=== PATIENT | male | born 1975 | race African-American/Black ===

== ENCOUNTER 2019-03-25 14:29 | Emergency (ER) | payer OTHER ==
[2019-03-25 14:43] VITALS: BP 127/71; PULSE 74; TEMP 98.9; BMI 31.3
--- NOTE | 2019-03-25 15:01 | PDOC ---
History of Present Illness - General Chief Complaint: Injury Stated Complaint: LT THUMB INJURY Time Seen by Provider: 03/25/19 14:38 History Source: Patient Exam Limitations: Clinical Condition - History of Present Illness Initial Comments: 03/25/19 14:56 Patient with no significant past medical history present with complaint of laceration to the tip of left thumb with a metal piece at work. Patient reported last tetanus vaccine last year. Denies numbness or tingling sensation. Denies any other symptoms Timing/Duration: reports: just prior to arrival Past History - Past Medical History Allergies/Adverse Reactions: Allergies Allergy/AdvReac Type Severity Reaction Status Date / Time No Known Allergies Allergy Verified 03/25/19 14:34 Home Medications: Ambulatory Orders Cephalexin Monohydrate [Keflex -] 500 mg PO BID 7 Days #14 capsule 03/25/19 Ibuprofen 800 mg PO Q8H PRN #20 tablet 03/25/19 COPD: No - Immunization History Immunization Up to Date: Yes - Suicide/Smoking/Psychosocial Hx Smoking History: Never smoked Review of Systems - Review of Systems Able to Perform ROS?: Yes Is the patient limited [place] proficient: No Constitutional: No: Weakness HEENTM: No: Symptoms Reported Respiratory: No: Symptoms reported Cardiac (ROS): No: Symptoms Reported ABD/GI: No: Symptoms Reported Musculoskeletal: Yes: Symptoms Reported, Muscle Pain (tip of left thumb) Integumentary: Yes: Symptoms Reported, See HPI, Other (laceration to tip of left thumb) Neurological: No: Symptoms reported, Numbness, Paresthesia, Tingling All Other Systems: Reviewed and Negative *Physical Exam - Vital Signs Last Vital Signs Temp Pulse Resp BP Pulse Ox 98.9 F 74 18 127/71 99 03/25/19 14:31 03/25/19 14:31 03/25/19 14:31 03/25/19 14:31 03/25/19 14:31 - Physical Exam Comments: 03/25/19 14:58 GENERAL: Well developed, well nourished. Awake and alert. No acute distress. PULMONARY: No evidence of respiratory distress. MUSCULOSKELETAL : mild tenderness to distal phalange of left thumb over area of laceration. Free range of motion of thumb. No bony deformities SKIN: Warm and dry. Normal capillary refill. 3 cm superficial laceration with a flap to tip of left thumb with minimal bleeding NEUROLOGICAL: Alert, awake, appropriate. No motor deficits in the lower extremities. Gait is normal without ataxia. PSYCHIATRIC: Cooperative. Good eye contact. Appropriate mood and affect. General Appearance: Yes: Nourished, Appropriately Dressed. No: Apparent Distress Procedures - Laceration/Wound Repair Left Anterior Distal Plantar Finger 1st digit Wound Length: 2.6 to 5.0 cm (3cm) Wound Explored: clean, no foreign body present Wound's Depth, Shape: superficial, linear, flap Irrigated w/ Saline: Yes Betadine Prep: Yes Anesthesia: 1% Lidocaine Amount of Anesthetic (ccs): 2 Wound Repaired With: Sutures Suture Size/Type: 4:0, nylon Number of Sutures: 5 Layer Closure: No Sterile Dressing Applied: Yes Splint Applied: No Sling Applied: No Progress: 03/25/19 15:15 Wound cleaned with Betadine and infiltrated with 2 mL 1% lidocaine. Wound closed with 5 interrupted 4-0 nylon sutures. Bacitracin apply to wound. Patient tolerated procedure well. Medical Decision Making - Medical Decision Making 03/25/19 14:56 Patient with no significant past medical history present with complaint of laceration to the tip of left thumb with a metal piece at work. Patient reported last tetanus vaccine last year. Denies numbness or tingling sensation. Denies any other symptoms Exam significant for 3 cm superficial laceration semilunar fashion with a flap to tip of left thumb with minimal bleeding.. Range of motion of thumb. Wound cleaned with Betadine and infiltrated with 2 mL 1% lidocaine. Wound closed with 5 interrupted 4-0 nylon sutures. Bacitracin apply to wound. Patient tolerated procedure well. Patient is stable for discharge on Keflex antibiotics for infection prophylaxis and Motrin when necessary for pain with advised to follow-up in one week for suture removal. Patient educated on home wound care and stable for discharge *DC/Admit/Observation/Transfer Diagnosis at time of Disposition: Laceration of thumb Qualifiers: Encounter type: initial encounter Damage to nail status: without damage Foreign body presence: without foreign body Laterality: left Qualified Code(s): S61.012A - Laceration without foreign body of left thumb without damage to nail , initial encounter - Discharge Dispostion Disposition: HOME Condition at time of disposition: Stable Decision to Admit order: No - Prescriptions Prescriptions: Cephalexin Monohydrate [Keflex -] 500 mg PO BID 7 Days #14 capsule Ibuprofen 800 mg PO Q8H PRN #20 tablet PRN Reason: pain - Referrals Referrals: Dario Aiken [Primary Care Provider] - - Patient Instructions Printed Discharge Instructions: DI for Laceration Repair -- Simple Additional Instructions: Keep wound clean and dry for the next 24 hours. Apply bacitracin to wound twice a day. Take prescribed medications as prescribed. Follow-up in one week for suture removal - Post Discharge Activity
== END 2019-03-25 15:15 | disposition home or self-care (01) ==
LOC: JERFT 14:29
PROC: 0HQGXZZ Repair Left Hand Skin, External Approach (ICD-10-PCS; principal; 2019-03-25)
DX: S61.012A Laceration without foreign body of left thumb without damage to nail, initial encounter (principal); W26.8XXA Contact with other sharp object(s), not elsewhere classified, initial encounter; Y93.89 Activity, other specified; Y92.89 Other specified places as the place of occurrence of the external cause; Y99.0 Civilian activity done for income or pay
CPT/HCPCS: 99281-25

== ENCOUNTER 2019-04-01 15:05 | Emergency (ER) | payer OTHER ==
[2019-04-01 15:12] VITALS: BP 138/78; PULSE 78; TEMP 98.3; BMI 28.1
--- NOTE | 2019-04-01 15:18 | PDOC ---
History of Present Illness - General Chief Complaint: Suture/Staple Removal(Here) Stated Complaint: SUTURE REMOVAL Time Seen by Provider: 04/01/19 15:12 - History of Present Illness Initial Comments: 04/01/19 15:17 43-year-old male presents for suture removal from the left thumb sutures placed 10 days ago. No sequelae since suture placement. Past History - Past Medical History Allergies/Adverse Reactions: Allergies Allergy/AdvReac Type Severity Reaction Status Date / Time No Known Allergies Allergy Verified 04/01/19 15:09 Home Medications: Ambulatory Orders Cephalexin Monohydrate [Keflex -] 500 mg PO BID 7 Days #14 capsule 03/25/19 Ibuprofen 800 mg PO Q8H PRN #20 tablet 03/25/19 COPD: No - Immunization History Immunization Up to Date: Yes - Suicide/Smoking/Psychosocial Hx Smoking History: Never smoked Information on smoking cessation initiated: No Hx Alcohol Use: No Drug/Substance Use Hx: No Review of Systems - Review of Systems Constitutional: Yes: See HPI *Physical Exam - Vital Signs Last Vital Signs Temp Pulse Resp BP Pulse Ox 98.3 F 78 18 138/78 99 04/01/19 15:09 04/01/19 15:09 04/01/19 15:09 04/01/19 15:09 04/01/19 15:09 - Physical Exam Comments: 04/01/19 15:17 5 Prolene sutures are in place skin color and temperature are normal at the tip of the left thumb. No indication of infection. Neurovascularly intact. Medical Decision Making - Medical Decision Making 04/01/19 15:17 Sutures were removed with an 11 blade without complication *DC/Admit/Observation/Transfer Diagnosis at time of Disposition: Visit for suture removal - Discharge Dispostion Disposition: HOME Condition at time of disposition: Stable Decision to Admit order: No - Referrals Referrals: Josh Monroe [Primary Care Provider] - - Patient Instructions Printed Discharge Instructions: DI for Suture Removal Additional Instructions: Please leave the Steri-Strips on. He may wash the wound with soap and water and leave it open to air. If you're working he can cover with Band-Aid or dry sterile dressing. Return to the emergency room should you have any further issues such as redness pain drainage or swelling from the area Tylenol and Motrin as directed for pain. - Post Discharge Activity
== END 2019-04-01 15:18 | disposition home or self-care (01) ==
LOC: JERFT 15:05
DX: Z48.02 Encounter for removal of sutures (principal)
CPT/HCPCS: 99281-25

== ENCOUNTER 2019-06-06 08:17 | Emergency (ER) | payer OTHER ==
[2019-06-06 08:21] VITALS: BP 119/71; PULSE 80; TEMP 98.5; BMI 31.3
--- NOTE | 2019-06-06 09:01 | PDOC ---
History of Present Illness - General Chief Complaint: Cold Symptoms Stated Complaint: COLD Time Seen by Provider: 06/06/19 08:47 History Source: Patient Exam Limitations: No Limitations Past History - Past Medical History Allergies/Adverse Reactions: Allergies Allergy/AdvReac Type Severity Reaction Status Date / Time Pork/Porcine Containing Allergy Verified 06/06/19 08:24 Products Home Medications: Ambulatory Orders Cephalexin Monohydrate [Keflex -] 500 mg PO BID 7 Days #14 capsule 03/25/19 Ibuprofen 800 mg PO Q8H PRN #20 tablet 03/25/19 COPD: No - Immunization History Immunization Up to Date: Yes - Psycho Social/Smoking Cessation Hx Smoking History: Never smoked Information on smoking cessation initiated: No Hx Alcohol Use: No Drug/Substance Use Hx: No *Physical Exam - Vital Signs Last Vital Signs Temp Pulse Resp BP Pulse Ox 98.5 F 80 18 119/71 97 06/06/19 08:19 06/06/19 08:19 06/06/19 08:19 06/06/19 08:19 06/06/19 08:19 - Physical Exam General Appearance: No: Apparent Distress HEENT: positive: Normal Voice. negative: Muffled/Hoarse voice, Pharyngeal Erythema, Tonsillar Exudate, Tonsillar Erythema, Nasal Congestion, Rhinorrhea Respiratory/Chest: positive: Lungs Clear, Normal Breath Sounds. negative: Respiratory Distress Cardiovascular: positive: Regular Rhythm, Regular Rate, S1, S2. negative: Murmur Gastrointestinal/Abdominal: positive: Normal Bowel Sounds, Soft. negative: Tender, Distended, Guarding, Rebound Neurologic: positive: Alert, Normal Mood/Affect Medical Decision Making - Medical Decision Making 44 y/o M with no sig pmh presents with cough x 2 days along with post-tussive emesis, congestion and sore throat. Denies fever, sob, cp, abd pain, diarrhea, recent travel. No antipyretics were taken today Likely viral URI patient afebrile, lungs clear stable for dc 06/06/19 08:59 Discharge - Discharge Information Problems reviewed: Yes Clinical Impression/Diagnosis: Viral URI Condition: Stable Disposition: HOME - Admission No - Additional Discharge Information Prescription Drug Monitoring Program (I-STOP) results: I-STOP not reviewed - Follow up/Referral Referrals: Josh Monroe [Primary Care Provider] - 2 Days - Patient Discharge Instructions Patient Printed Discharge Instructions: DI for Viral Upper Respiratory Infection -- Adult Additional Instructions: Thank you for choosing [facility]. It was a pleasure taking care of you. Likely you have viral infection Take Mucinex or Robitussin as needed for cough Salt water gargles may also help Recommend hydrated (at least 2-3L) daily Follow-up with your doctor in 1 week. Return to the Emergency Department if your symptoms worsen or persist or have other concerning symptoms. - Post Discharge Activity Work/Back to School Note: Back to Work
== END 2019-06-06 09:35 | disposition home or self-care (01) ==
LOC: JERFT 08:17
DX: Z91.018 Allergy to other foods (principal)
CPT/HCPCS: 99281-25

== ENCOUNTER 2019-08-12 15:00 | Emergency (ER) | payer OTHER ==
[2019-08-12 15:11] VITALS: BP 141/87; PULSE 78; TEMP 98; BMI 32.1
--- NOTE | 2019-08-12 15:45 | PDOC ---
History of Present Illness - General Chief Complaint: Injury Stated Complaint: R HAND INJURY Time Seen by Provider: 08/12/19 15:13 - History of Present Illness Initial Comments: 08/12/19 15:40 CHIEF COMPLAINT: laceration HISTORY OF PRESENT ILLNESS: 44 yo M with no PMH presents to fast track with laceration to R index finger. 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 Patient reports last tetanus shot was last year. No recent travel or sick contacts. PAST MEDICAL HISTORY: Denies past medical history FAMILY HISTORY: Denies SOCIAL HISTORY: Denies tobacco, alcohol, illicit drug use. SURGICAL HISTORY: Denies ALLERGIES: No known drug allergies REVIEW OF SYSTEMS General/Constitutional: Denies fever or chills. Denies weakness, weight change. HEENT: Denies change in vision. Denies ear pain or discharge. Denies sore throat. Cardiovascular: Denies chest pain or shortness of breath. Respiratory: Denies cough, wheezing, or hemoptysis. Gastrointestinal: Denies nausea, vomiting, diarrhea or constipation. Denies rectal bleeding. Genitourinary: Denies dysuria, frequency, or change in urination. Musculoskeletal: Denies joint or muscle swelling or pain. Denies neck or back pain. Skin: Laceration to R index finger. Neurologic: Denies headache, vertigo, loss of consciousness, or loss of sensation. Psychiatric: Denies depression or anxiety. PHYSICAL EXAM General Appearance: Well-appearing, appropriately dressed. No apparent distress. HEENT: EOMI, PERRLA, normal ENT inspection, normal voice, TMs normal, pharynx normal. No conjunctival pallor. No photophobia, scleral icterus. Neck: Supple. Trachea midline. No tenderness, rigidity, carotid bruit, stridor , lymphadenopathy, or thyromegaly. Respiratory/Chest: Lungs CTAB. No shortness of breath, chest tenderness, respiratory distress, accessory muscle use. No crackles, rales, rhonchi, stridor , wheezing, dullness Cardiovascular: RRR. S1, S2. No JVD, murmur, bradycardia, tachycardia. Vascular Pulses: Dorsalis-Pedis (R): 2+, Dorsalis-Pedis (L): 2+ Gastrointestinal/Abdominal: Normal bowel sounds. Abdomen soft, non-distended. No tenderness or rebound tenderness. No organomegaly, pulsatile mass, guarding , hernia, hepatomegaly, splenomegaly. Musculoskeletal/Extremities: Normal inspection. FROM of all extremities, normal capillary refill. Pelvis Stable. No CVA tenderness. No tenderness to extremities, pedal edema, swelling, erythema or deformity. Integumentary: Flap laceration 2.5 cm in length to palmar aspect of R index finger with minimal bleeding. Appropriate color, dry, warm. No cyanosis, erythema, jaundice or rash Neurologic: physiotherapy aide II-XII intact. Fully oriented, alert. Appropriate mood/affect. Motor strength 5/5. No appreciable EOM palsy, facial droop or sensory deficit. Past History - Past Medical History Allergies/Adverse Reactions: Allergies Allergy/AdvReac Type Severity Reaction Status Date / Time Pork/Porcine Containing Allergy Verified 08/12/19 15:20 Products Home Medications: Ambulatory Orders NK [No Known Home Medication] 08/12/19 COPD: No - Immunization History Immunization Up to Date: Yes - Psycho Social/Smoking Cessation Hx Smoking History: Never smoked Information on smoking cessation initiated: No Hx Alcohol Use: No Drug/Substance Use Hx: No *Physical Exam - Vital Signs Last Vital Signs Temp Pulse Resp BP Pulse Ox 98 F 78 18 141/87 99 08/12/19 15:03 08/12/19 15:03 08/12/19 15:03 08/12/19 15:03 08/12/19 15:03 Procedures - Consent Consent obtained: Verbal - Laceration/Wound Repair Right Volar Finger 2nd digit Wound Length: to 2.5 cm Wound Explored: clean Wound's Depth, Shape: flap Irrigated w/ Saline: Yes Anesthesia: 1% Lidocaine Amount of Anesthetic (ccs): 3 Wound Repaired With: Sutures Suture Size/Type: 5:0 Number of Sutures: 6 Layer Closure: No Sterile Dressing Applied: Yes (xeroform, bandaid) Progress: 08/12/19 15:46 flap laceration t R index closed with six 5-0 simple interrupted sutures. Edges well approximated, patient tolerated well. Medical Decision Making - Medical Decision Making 08/12/19 15:44 44 yo M with no PMH presents to fast track with laceration to R index finger. lac repair performed (see procedure note). pt UTD with tdap. Lac repair discharge instructions given. Advised patient of signs and symptoms for return to ED. Patient verbalized understanding and agrees to plan. Discharge - Discharge Information Problems reviewed: Yes Clinical Impression/Diagnosis: Laceration of finger of right hand Qualifiers: Encounter type: initial encounter Finger: index finger Damage to nail status: without damage Foreign body presence: without foreign body Qualified Code(s): S61.210A - Laceration without foreign body of right index finger without damage to nail, initial encounter Condition: Stable Disposition: HOME - Admission No - Follow up/Referral Referrals: Dario Aiken [Primary Care Provider] - - Patient Discharge Instructions Patient Printed Discharge Instructions: DI for Laceration Repair -- Simple Additional Instructions: As discussed, please keep area of laceration clean and dry for the next 24-48 hours. Afterwards you may wash with mild soap and water. Return to fast track or your primary care doctor for suture removal in 7-10 days. If you experience any redness, swelling, streaking, warmth, to the site of the cut, or develop fever, nausea, vomiting, or diarrhea, please return to the ER. - Post Discharge Activity Work/Back to School Note: Back to Work
== END 2019-08-12 15:58 | disposition home or self-care (01) ==
LOC: JERFT 15:00
PROC: 0HQFXZZ Repair Right Hand Skin, External Approach (ICD-10-PCS; principal; 2019-08-12)
DX: S61.210A Laceration without foreign body of right index finger without damage to nail, initial encounter (principal); W26.0XXA Contact with knife, initial encounter; Y93.G1 Activity, food preparation and clean up; Y92.511 Restaurant or cafe as the place of occurrence of the external cause; Y99.0 Civilian activity done for income or pay; Z91.018 Allergy to other foods
CPT/HCPCS: 99281-25

== ENCOUNTER 2021-06-28 10:17 | Emergency (ER) | payer OTHER ==
[2021-06-28 10:22] VITALS: BP 138/88; PULSE 92; TEMP 97; BMI 32.1
[2021-06-28] MEDS ORDERED: ACETAMINOPHEN 325 MG TABLET (FP) PO ONE (11:04)
[2021-06-28] MEDS ORDERED: ACETAMINOPHEN 500 MG TABLET (FP) ONE (11:53)
[2021-06-28] MEDS ORDERED: KETOROLAC TROMETHAMINE 30 MG/1 ML VIAL IM ONE (12:45)
[2021-06-28] MEDS ORDERED: KETOROLAC TROMETHAMINE 30 MG/1 ML VIAL ONE (12:47)
== END 2021-06-28 13:39 | disposition home or self-care (01) ==
LOC: JER 10:17
PROC: 3E0233Z Introduction of Anti-inflammatory into Muscle, Percutaneous Approach (ICD-10-PCS; principal; 2021-06-28)
DX: M25.521 Pain in right elbow (principal); W19.XXXA Unspecified fall, initial encounter; Y92.9 Unspecified place or not applicable
CPT/HCPCS: 70450-TC; 70486-TC; 73070-TC-RT-FY; 99284-25